=== PATIENT | female | born 1955 | race Caucasian/White ===

== ENCOUNTER 2018-10-14 09:55 | Inpatient (IN) | payer MEDICARE ==
[~2018-10-14] VITALS: Ht 156.2 cm; Wt 56.7 kg
[~2018-10-14 09:55] MED LIST: AMLO5TAB4 PO; AZIT250T PO; CIPR500T94 PO; Ipratropium/Albuterol Sulfate NEB; LOSA100T2 PO; MONT10TA80 PO; PRED5TAB PO; Potassium Chloride PO
[2018-10-14] MEDS ORDERED: IV NORMAL SALINE 1,000ML 1,000 ML IV ONE (10:15)
[2018-10-14] MEDS ORDERED: methylPREDNISolone SOD SUCC PF 125 MG/2 ML VIAL. IV ONE (10:15)
[2018-10-14] MEDS ORDERED: IPRATRPIUM/ALBUTEROL 0.5/2.5MG 3 ML NEBU. NEB ONE (10:15)
[2018-10-14 10:25] LABS: BASO # 0.1 x10^3/uL (0.0-0.2); BASO % 1 % (0-3); EOS % 0 % (0-3); HEMATOCRIT 44.3 % (36.0-47.0); HEMOGLOBIN 14.8 g/dL (12.0-15.5); LYMPH # 1.1 x10^3/uL (1.0-4.8); LYMPH % 14 % (24-48); MEAN CORPUSCULAR HEMOGLOBIN 29 pg (25-35); MEAN CORPUSCULAR HGB CONC 33 g/dL (31-37); MEAN CORPUSCULAR VOLUME 87 fL (79-100); MONO # 0.5 x10^3/uL (0.0-1.1); MONO % 6 % (0-9); NEUT # 6.7 x10^3uL (1.8-7.7); NEUT % 80 % (31-73); PLATELET COUNT 216 x10^3/uL (140-400); RED BLOOD COUNT 5.09 x10^6/uL (3.50-5.40); RED CELL DISTRIBUTION WIDTH 14.8 % (11.5-14.5); WHITE BLOOD COUNT 8.4 x10^3/uL (4.0-11.0)
[2018-10-14] MEDS ORDERED: IV NORMAL SALINE 50ML 50 ML ONE (10:28)
[2018-10-14] MEDS ORDERED: cefTRIAXone SODIUM 1 GM VIAL ONE (10:29)
--- NOTE | 2018-10-14 10:33 | RAD ---
EXAM: CHEST 1 VIEW History: Cough COMPARISON: 03/27/2016 TECHNIQUE: Single portable radiograph of the chest FINDINGS: The cardiac silhouette is unremarkable. The lungs are clear bilaterally. Mild bibasilar lung airspace opacities. IMPRESSION: Mild bibasilar lung airspace opacities likely atelectasis or infiltrates. Electronically signed by: Jameel Delacruz MD (10/14/2018 10:30 AM) [id number]
[2018-10-14 10:49] LABS: CALCIUM 9.5 mg/dL (8.5-10.1); CREATININE 0.9 mg/dL (0.6-1.0); GFR 63.7; POTASSIUM 3.6 mmol/L (3.5-5.1); TOTAL BILIRUBIN 0.5 mg/dL (0.2-1.0); TOTAL PROTEIN 8.2 g/dL (6.4-8.2)
--- NOTE | 2018-10-14 10:51 | PHYS DOC ---
Past History Past Medical History: Cancer, COPD, Hypertension Past Surgical History: Cancer Surgery Alcohol Use: None Drug Use: None Adult General Chief Complaint Chief Complaint: SHORTNESS OF BREATH HPI HPI Patient is a 63-year-old smoker presents with several-day history of progressive cough congestion and shortness of breath. She states she saw her primary care physician this morning and he told her her oxygen level was very low and she needed to come to the emergency department for further evaluation. Patient states in the past she has had a multi lobar pneumonia. She states this feels very similar to that. She denies any hemoptysis.[] Review of Systems Review of Systems Constitutional: Reports fever[] Eyes: Denies change in visual acuity, redness, or eye pain [] HENT: Denies nasal congestion or sore throat [] Respiratory: Per history of present illness[] Cardiovascular: No additional information not addressed in HPI [] GI: Denies abdominal pain, nausea, vomiting, bloody stools or diarrhea [] : Denies dysuria or hematuria [] Musculoskeletal: Denies back pain or joint pain [] Integument: Denies rash or skin lesions [] Neurologic: Denies headache, focal weakness or sensory changes [] Endocrine: Denies polyuria or polydipsia [] All other systems were reviewed and found to be within normal limits, except as documented in this note. Current Medications Current Medications Current Medications Medications (Trade) Dose Ordered Sig/Can Start Time Stop Time Status Last Admin Dose Admin Albuterol/ Ipratropium (Duoneb) 6 ml 1X ONCE 10/14/18 10:15 10/14/18 10:17 DC Ceftriaxone Sodium 1 gm/ Sodium Chloride 50 ml @ 100 mls/hr 1X ONCE 10/14/18 10:15 10/14/18 10:44 DC 10/14/18 10:35 100 MLS/HR Ceftriaxone Sodium (Rocephin) 1 gm STK-MED ONCE 10/14/18 10:29 10/14/18 10:30 DC Methylprednisolone Sodium Succinate (SOLU-Medrol 125MG VIAL) 125 mg 1X ONCE 10/14/18 10:15 10/14/18 10:17 DC 10/14/18 10:35 125 MG Sodium Chloride 50 ml @ As Directed STK-MED ONCE 10/14/18 10:28 10/14/18 10:29 DC Allergies Allergies Allergies Coded Allergies Type Severity Reaction Last Updated Verified morphine Allergy Intermediate Nausea and Vomiting 01/22/15 Yes Physical Exam Physical Exam Constitutional: Well developed, well nourished, moderate respiratory distress, appears acutely ill. [] HENT: Normocephalic, atraumatic, bilateral external ears normal, oropharynx moist, no oral exudates, nose normal. [] Eyes: PERRLA, EOMI, conjunctiva normal, no discharge. [] Neck: Normal range of motion, no tenderness, supple, no stridor. [] Cardiovascular:Heart rate regular rhythm, no murmur [] Lungs & Thorax: Scattered wheezes throughout both lungs no rales[] Abdomen: Bowel sounds normal, soft, no tenderness, no masses, no pulsatile masses. [] Skin: Warm, dry, no erythema, no rash. [] Back: No tenderness, no CVA tenderness. [] Extremities: No tenderness, no cyanosis, no clubbing, ROM intact, no edema. [] Neurologic: Alert and oriented X 3, normal motor function, normal sensory function, no focal deficits noted. [] Psychologic: Anxious[] Current Patient Data Vital Signs Vital Signs Date Time Temp Pulse Resp B/P (MAP) Pulse Ox O2 Delivery O2 Flow Rate FiO2 10/14/18 10:09 98.4 95 18 87 Nasal Cannula 3.0 Lab Results Laboratory Tests Test 10/14/18 10:04 White Blood Count 8.4 x10^3/uL (4.0-11.0) Red Blood Count 5.09 x10^6/uL (3.50-5.40) Hemoglobin 14.8 g/dL (12.0-15.5) Hematocrit 44.3 % (36.0-47.0) Mean Corpuscular Volume 87 fL (79-100) Mean Corpuscular Hemoglobin 29 pg (25-35) Mean Corpuscular Hemoglobin Concent 33 g/dL (31-37) Red Cell Distribution Width 14.8 % (11.5-14.5) H Platelet Count 216 x10^3/uL (140-400) Neutrophils (%) (Auto) 80 % (31-73) H Lymphocytes (%) (Auto) 14 % (24-48) L Monocytes (%) (Auto) 6 % (0-9) Eosinophils (%) (Auto) 0 % (0-3) Basophils (%) (Auto) 1 % (0-3) Neutrophils # (Auto) 6.7 x10^3uL (1.8-7.7) Lymphocytes # (Auto) 1.1 x10^3/uL (1.0-4.8) Monocytes # (Auto) 0.5 x10^3/uL (0.0-1.1) Eosinophils # (Auto) 0.0 x10^3/uL (0.0-0.7) Basophils # (Auto) 0.1 x10^3/uL (0.0-0.2) Lactic Acid Level 1.5 mmol/L (0.4-2.0) Troponin I Quantitative < 0.017 ng/mL (0-0.055) EKG EKG EKG: Normal sinus rhythm rate of [address]-T changes[] Radiology/Procedures Radiology/Procedures [] Impressions: ROCEDURE: CHEST AP ONLY EXAM: CHEST 1 VIEW History: Cough COMPARISON: 03/27/2016 TECHNIQUE: Single portable radiograph of the chest FINDINGS: The cardiac silhouette is unremarkable. The lungs are clear bilaterally. Mild bibasilar lung airspace opacities. IMPRESSION: Mild bibasilar lung airspace opacities likely atelectasis or infiltrates. Course & Med Decision Making Course & Med Decision Making Pertinent Labs and Imaging studies reviewed. (See chart for details) [ED course: Evaluation reveals a 63-year-old female with wheezes. She was given [id number] DuoNeb's and 125 of Solu-Medrol IV with some improvement in her breathing however when she ambulated to the department her oxygen saturation went back into the low 80s. I spoke with her primary care physician who is agreed to admit her to the hospital for further treatment and evaluation] Dragon Disclaimer Dragon Disclaimer This electronic medical record was generated, in whole or in part, using a voice recognition dictation system. Departure Departure: Impression: Primary Impression: COPD with exacerbation Disposition: ADMITTED INPATIENT Admitting Physician: Donis Cedillo Condition: STABLE Referrals: DONIS CEDILLO MD (PCP) JAMIA GROSS DO Oct 14, 2018 10:51
[2018-10-14] MEDS: IV NORMAL SALINE 1,000ML 1,000 ML IV SCH ×2 (10:53→18:53)
[2018-10-14] MEDS ORDERED: ACETAMINOPHEN 325 MG TABLET PO PRN (11:00)
[2018-10-14] MEDS ORDERED: ONDANSETRON PF 4 MG/2 ML VIAL. IV PRN (11:00)
[2018-10-14 13:31] VITALS: BP 131/59
--- NOTE | 2018-10-14 13:52 | NUR ---
Pt Cory Nidia admitted to ICU 5 tele status for COPD exac and PNA. Pt reports never being told she has COPD in past. Pt denies pain, is currently requiring 4L NC for sats to be 92%. Continuing with IV abx, breathing treatments and solumedrol. PT is alert and oriented x4. However, pt refusing it to be at 4L , states it hurts her nose so O2 is at 3L, pt sats 89-90%. Pt reports she was going to leave ED because she was mad that the ED doctor told her she had COPD. Is hoping to leave tomorrow, RN informed patient that she should expect to stay a couple of days as her oxygen status is not doing well and patient does not want to go home on oxygen. Pt states she will stay now that she knows she has some pneumonia. DARWIN.
[2018-10-14] MEDS: IPRATRPIUM/ALBUTEROL 0.5/2.5MG 3 ML NEBU. NEB SCH ×3 (14:55→20:13)
[2018-10-14] MEDS: methylPREDNISolone SOD SUCC PF 40 MG/ML VIAL. IV SCH ×2 (14:55→21:02)
[2018-10-14] MEDS: HEPARIN for SUB-Q USE 5,000 UNIT/ML VIAL. SQ SCH ×2 (14:58→19:27)
--- NOTE | 2018-10-14 15:16 | NUR ---
Pt is refusing heparin SQ, states she does not want poked with a needle and would rather get up and walk. Pt given a portable O2 tank and went for walk to [facility]. DARWIN.
[2018-10-14 15:27] VITALS: BP 149/64
--- NOTE | 2018-10-14 17:19 | EKG ---
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
[2018-10-14 19:16] VITALS: BP 131/68
[2018-10-14] MEDS: LACTOBACILLUS RHAMNOSUS GG 1 CAPSULE. PO SCH (19:48)
[2018-10-14] MEDS: amLODIPine BESYLATE 5 MG TABLET PO SCH (19:49)
[2018-10-14 23:03] VITALS: BP 132/64
[2018-10-15] MEDS: IV NORMAL SALINE 1,000ML 1,000 ML IV SCH (01:49)
[2018-10-15] MEDS: HEPARIN for SUB-Q USE 5,000 UNIT/ML VIAL. SQ SCH ×3 (05:05→21:49)
[2018-10-15 05:10] VITALS: BP 136/67
[2018-10-15] MEDS: methylPREDNISolone SOD SUCC PF 40 MG/ML VIAL. IV SCH ×3 (05:12→21:49)
[2018-10-15] MEDS: IPRATRPIUM/ALBUTEROL 0.5/2.5MG 3 ML NEBU. NEB SCH ×3 (05:35→20:39)
[2018-10-15 06:58] LABS: BASO % 0 % (0-3); EOS % 0 % (0-3); HEMOGLOBIN 12.6 g/dL (12.0-15.5); LYMPH # 0.6 x10^3/uL (1.0-4.8); LYMPH % 7 % (24-48); MEAN CORPUSCULAR HEMOGLOBIN 29 pg (25-35); MEAN CORPUSCULAR HGB CONC 33 g/dL (31-37); MEAN CORPUSCULAR VOLUME 89 fL (79-100); MONO # 0.1 x10^3/uL (0.0-1.1); MONO % 2 % (0-9); NEUT # 7.9 x10^3uL (1.8-7.7); NEUT % 91 % (31-73); PLATELET COUNT 179 x10^3/uL (140-400); RED BLOOD COUNT 4.29 x10^6/uL (3.50-5.40); RED CELL DISTRIBUTION WIDTH 14.9 % (11.5-14.5); WHITE BLOOD COUNT 8.7 x10^3/uL (4.0-11.0)
[2018-10-15] MEDS: amLODIPine BESYLATE 5 MG TABLET PO SCH ×3 (08:14→20:57)
[2018-10-15] MEDS: LACTOBACILLUS RHAMNOSUS GG 1 CAPSULE. PO SCH ×2 (08:14→20:57)
[2018-10-15] MEDS: NICOTINE 21MG PATCH. TD SCH ×2 (08:16→08:36)
--- NOTE | 2018-10-15 09:43 | NUR ---
NURSING NOTE PT REFUSED BP MED NORVASC THIS AM STATES SHE ONLY TAKES IT ONCE DAILY AND GOT IT LATE LAST NIGHT AND DOES NOT WANT IT RIGHT KNOW. JULY SINGER.
--- NOTE | 2018-10-15 09:45 | NUR ---
NURSING NOTE FLUIDS PER DR SOLIMAN, NO ADDITIONAL FLUIDS NEEDED AT THIS TIME. BP STABLE. ENMANUEL MCDOWELL
--- NOTE | 2018-10-15 10:41 | PN ---
DATE: SUBJECTIVE: The patient admitted yesterday for increased shortness of breath, exacerbation of asthma, pneumonia and possible sepsis. The patient is doing better this morning. She was given IV fluids, double antibiotics, sepsis protocol and pathway on heparin injections. OBJECTIVE: VITAL SIGNS: The patient's blood pressure this morning is stable at 136/67, respiratory rate 16, pulse 78, afebrile. GENERAL: The patient is alert and oriented x 3. LUNGS: Diminished, but clear. There are some decreased breath sounds in the right upper lobe and left lower lobe. CARDIOVASCULAR: Regular sinus rhythm and bradycardic. ABDOMEN: Soft, nontender. EXTREMITIES: No clubbing, cyanosis, nor edema. NEUROLOGIC: The patient is alert and oriented, says she is feeling better. The patient's x-rays were basically showing possibility of atelectasis versus infiltrate. PLAN: We will go ahead and review this with possible CAT scan and get a D-dimer and make further evaluation and her labs are basically not particularly abnormal in that regard consistent with her bad infection, but we will continue to monitor her accordingly. IMPRESSION: Pneumonia of unspecified etiology, sepsis, acute exacerbation of chronic obstructive pulmonary disease secondary to respiratory infection, hypoxia, acute respiratory distress. DONNA SOLIMAN MD DR: TYLER/paul JOB#: [id number] / [id number]
[2018-10-15 11:11] VITALS: BP 142/86
[2018-10-15 15:30] VITALS: BP 141/39
[2018-10-15 19:20] VITALS: BP 149/77
[2018-10-15 22:40] VITALS: BP 144/67
[2018-10-16] MEDS: IPRATRPIUM/ALBUTEROL 0.5/2.5MG 3 ML NEBU. NEB SCH (05:01)
[2018-10-16 05:40] VITALS: BP 152/69
[2018-10-16] MEDS: methylPREDNISolone SOD SUCC PF 40 MG/ML VIAL. IV SCH (05:42)
[2018-10-16] MEDS: HEPARIN for SUB-Q USE 5,000 UNIT/ML VIAL. SQ SCH (05:43)
[2018-10-16] MEDS: LACTOBACILLUS RHAMNOSUS GG 1 CAPSULE. PO SCH (08:46)
[2018-10-16 08:47] VITALS: BP 152/69
[2018-10-16] MEDS: amLODIPine BESYLATE 5 MG TABLET PO SCH (08:47)
[2018-10-16] MEDS: NICOTINE 21MG PATCH. TD SCH (08:50)
[2018-10-16] MEDS ORDERED: amLODIPine BESYLATE 5 MG TABLET PO SCH (09:00)
[2018-10-16] MEDS ORDERED: IPRA3AMP29 NEB (10:31)
[2018-10-16] MEDS ORDERED: LEVO500T59 PO (10:31)
[2018-10-16] MEDS ORDERED: AMLO5TAB4 PO (10:31)
[2018-10-16] MEDS ORDERED: Nicotine 21MG TD (10:31)
--- NOTE | 2018-10-16 11:01 | NUR ---
pt discharged, verbalized understanding with paperwork, iv d/c'd, pt off the unit accompanied by .
--- NOTE | 2018-10-16 17:04 | DS ---
DATE OF DISCHARGE: 10/16/2018 HOSPITAL COURSE: A 63-year-old female came to the hospital extremely short of breath, acute respiratory failure, came over to the Emergency Room where she was admitted in acute respiratory distress. The patient also had pneumonia. The patient was receiving IV antibiotic therapy. She did have possible sepsis and continued to receive IV antibiotic therapy; however, the patient demanded to be discharged home, but thought she could stay at least another day or two on IV antibiotics, but she refused and was discharged home on oral antibiotics as well as a followup here in the next couple of days as well as close monitoring. Phone number given to her and told her to stay. No smoking and to continue to wear a mask if [place] and [place]. In any case, the patient was discharged home per her request. IMPRESSION: Acute respiratory distress; sepsis; pneumonia of unspecified etiology; emphysema, centrilobular; hypertension, essential. Nicotine habituation. She will be on a heart healthy diet, decreased activity and encouraged numerous times to stop smoking and also numerous times to remain in the hospital for another day or two. She said she felt good enough to go home and demanded to be discharged. We will continue to monitor blood pressure as well as her other needs as indicated above. DONNA SOLIMAN MD DR: TYLER/paul JOB#: [id number] / [id number]
[2018-10-16] MEDS ORDERED: levoFLOXacin 750 MG TABLET PO SCH (20:00)
== END 2018-10-16 11:02 | disposition home or self-care (01) | DRG 871 ==
LOC: ER 09:55 → ICU 11:20
PROVIDERS: ADMIT Family Medicine; ATTEND Family Medicine
DX: A41.9 Sepsis, unspecified organism (principal); J18.9 Pneumonia, unspecified organism; J96.01 Acute respiratory failure with hypoxia; J45.901 Unspecified asthma with (acute) exacerbation; F17.210 Nicotine dependence, cigarettes, uncomplicated; J43.9 Emphysema, unspecified; I10 Essential (primary) hypertension; F17.200 Nicotine dependence, unspecified, uncomplicated; Z88.5 Allergy status to narcotic agent; Z90.710 Acquired absence of both cervix and uterus; Z90.5 Acquired absence of kidney
CPT/HCPCS: 36415; 71045; 80053; 83605; 83880; 84145; 84484; 85025; 85379; 87040; 87070; 87205; 87641; 93005; 94640; 94760; 96374; 96375; J0696; J1644; J1956; J2920; J2930; J7620; 99285-25; J7030

== ENCOUNTER 2020-09-05 08:35 | Inpatient (IN) | payer MEDICARE ==
[~2020-09-05] VITALS: Ht 156.2 cm; Wt 55.3 kg
[2020-09-05] VITALS (10 sets, daily range): BP systolic 101–130; BP diastolic 47–71
[~2020-09-05 08:35] MED LIST changes: +IPRA3AMP29 NEB; +LEVO500T59 PO; +Nicotine 21MG TD
[2020-09-05] MEDS ORDERED: IPRATRPIUM/ALBUTEROL 0.5/2.5MG 3 ML NEBU. ONE (09:11)
--- NOTE | 2020-09-05 09:14 | PHYS DOC ---
Past History Past Medical History: Cancer, COPD, Hypertension Additional Past Medical Histor: R arm disability Past Surgical History: Cancer Surgery, Hysterectomy Additional Past Surgical Histo: R nephrectomy Alcohol Use: None Drug Use: None Adult General Chief Complaint Chief Complaint: SHORTNESS OF BREATH [facility] HPI Patient is a 65-year-old female presenting for shortness of breath. She was seen at primary care's office this morning for same complaint. Reports 72 hours ago feeling more short of breath than usual without any known trauma, inciting event or exposure. Nothing known makes better, patient admits to being a heavy smoker and states this is made worse. Patient denies any pain just generalized feelings of air hunger with increased wheeze, sputum production and change in sputum purulence. No fever, she is up-to-date on all vaccinations including x2 COVID-19 vaccinations. Presented to primary care's office as stated and was found to be hypoxic on room air with chest x-ray concerning for potential pulmonary opacity concerning for pneumonia and so, patient was advised to present to our ER for work-up and likely admission Review of Systems Review of Systems Fourteen body systems of review of systems have been reviewed. See HPI for pertinent positives and negative responses, other ramirez all other systems are negative, non-pertinent or non-contributory Allergies Allergies Allergies Coded Allergies Type Severity Reaction Last Updated Verified morphine Allergy Intermediate Nausea and Vomiting 01/22/15 Yes Physical Exam Physical Exam Constitutional: Well developed, well nourished, no acute distress, non-toxic appearance. HENT: Normocephalic, atraumatic, bilateral external ears normal, oropharynx moist, no oral exudates, nose normal. Eyes: PERRLA, EOMI, conjunctiva normal, no discharge. Neck: Normal range of motion, no tenderness, supple, no stridor. Cardiovascular: Heart rate regular, sinus rhythm, no murmurs rubs or gallops Lungs & Thorax: Bilateral breath sounds clear to auscultation Abdomen: Bowel sounds normal, soft, no tenderness, no masses, no pulsatile masses. Nonsurgical abdomen, no peritoneal signs Skin: Warm, dry, no erythema, no rash. Back: No tenderness, no CVA tenderness. Extremities: No tenderness, no cyanosis, no clubbing, ROM intact, no edema. Neurologic: Alert and oriented X 3, grossly normal motor & sensory function, no focal deficits noted. Psychologic: Affect normal, judgement normal, mood normal. Current Patient Data Vital Signs Vital Signs Date Time Temp Pulse Resp B/P (MAP) Pulse Ox O2 Delivery O2 Flow Rate FiO2 09/05/20 08:52 98.2 91 20 146/104 (118) 72 Room Air Lab Results Laboratory Tests Test 09/05/20 09:03 White Blood Count 7.2 x10^3/uL Red Blood Count 5.03 x10^6/uL Hemoglobin 15.2 g/dL Hematocrit 43.9 % Mean Corpuscular Volume 87 fL Mean Corpuscular Hemoglobin 30 pg Mean Corpuscular Hemoglobin Concent 35 g/dL Red Cell Distribution Width 13.8 % Platelet Count 160 x10^3/uL Neutrophils (%) (Auto) 81 % Lymphocytes (%) (Auto) 12 % Monocytes (%) (Auto) 7 % Eosinophils (%) (Auto) 0 % Basophils (%) (Auto) 1 % Neutrophils # (Auto) 5.9 x10^3uL Lymphocytes # (Auto) 0.8 x10^3/uL Monocytes # (Auto) 0.5 x10^3/uL Eosinophils # (Auto) 0.0 x10^3/uL Basophils # (Auto) 0.0 x10^3/uL Bedside Venous pH 7.34 Bedside Venous pCO2 50 mmHg Bedside Venous pO2 27 mmHg Venous Blood HCO3 27 mmol/L POC Venous O2 Saturation (Antonio) 45 % Bedside FiO2 36 Sodium Level 129 mmol/L Potassium Level 4.2 mmol/L Chloride Level 92 mmol/L Carbon Dioxide Level 28 mmol/L Anion Gap 9 Blood Urea Nitrogen 14 mg/dL Creatinine 0.9 mg/dL Estimated GFR (Cockcroft-Gault) 63.2 BUN/Creatinine Ratio 16 Glucose Level 100 mg/dL Lactic Acid Level 1.7 mmol/L Calcium Level 9.2 mg/dL Total Bilirubin 1.1 mg/dL Aspartate Amino Transf (AST/SGOT) 19 U/L Alanine Aminotransferase (ALT/SGPT) 21 U/L Alkaline Phosphatase 99 U/L Troponin I Quantitative < 0.017 ng/mL Total Protein 7.6 g/dL Albumin 4.2 g/dL Albumin/Globulin Ratio 1.2 Current Medications Medications (Trade) Dose Ordered Sig/Can Route PRN Reason Start Time Stop Time Status Last Admin Dose Admin Albuterol/ Ipratropium (Duoneb) 3 ml 1X ONCE NEB 09/05/20 09:15 09/05/20 09:26 DC 09/05/20 09:18 Ceftriaxone Sodium 1 gm/ Sodium Chloride 50 ml @ 100 mls/hr 1X ONCE IV 09/05/20 09:15 09/05/20 09:44 DC 09/05/20 09:40 Azithromycin 500 mg/Sodium Chloride 250 ml @ 250 mls/hr 1X ONCE IV 09/05/20 09:15 09/05/20 10:14 DC Albuterol/ Ipratropium (Duoneb) 3 ml STK-MED ONCE .ROUTE 09/05/20 09:11 09/05/20 09:11 DC Aspirin (Marissa Aspirin) 325 mg 1X ONCE PO 09/05/20 09:30 09/05/20 09:31 DC 09/05/20 09:39 Sodium Chloride 250 ml @ As Directed STK-MED ONCE .ROUTE 09/05/20 09:31 09/05/20 09:31 DC Sodium Chloride 50 ml @ As Directed STK-MED ONCE .ROUTE 09/05/20 09:31 09/05/20 09:31 DC Azithromycin (Zithromax) 500 mg STK-MED ONCE IV 09/05/20 09:31 09/05/20 09:31 DC Ceftriaxone Sodium (Rocephin) 1 gm STK-MED ONCE .ROUTE 09/05/20 09:31 09/05/20 09:31 DC Iohexol (Omnipaque 350 Mg/ml) 100 ml 1X ONCE IV 09/05/20 09:45 09/05/20 09:46 DC 09/05/20 10:02 EKG EKG EKG ordered and interpreted by myself 0901 hrs. as sinus rhythm at 80 bpm, no axis deviation, unremarkable intervals, no acute ischemic findings, no STEMI Radiology/Procedures Radiology/Procedures XR CHEST 1V CLINICAL INDICATIONS: Reason: SHORTNESS OF BREATH COMPARISON: October 14, 2018. Findings: Previously seen bibasilar lung infiltrates have cleared. No acute lung infiltrate or pleural effusion or pulmonary edema or lung mass or pneumothorax is seen. The heart size, pulmonary vasculature, mediastinum and both jaja are unremarkable. IMPRESSION: No acute radiographic abnormality is seen. Electronically signed by: Emmett Alvares MD (09/05/2020 9:22 AM) [id number] ////////////// Examination: CT angiography chest with IV contrast HISTORY: History of shortness of breath COMPARISON: 01/21/2015 Technique: Axial CT angiographic images of chest were performed with IV contrast. Coronal and sagittal 3-D MIP reformats are performed Exposure: One or more of the following individualized dose reduction techniques were utilized for this examination: 1. Automated exposure control 2. Adjustment of the mA and/or kV according to patient size 3. Use of iterative reconstruction technique FINDINGS: The visualized thyroid gland grossly appears unremarkable. The caliber of the aorta grossly appears unremarkable. Moderate aortic atherosclerosis. There is no evidence of filling defect identified in main pulmonary arterial trunk and right and left main pulmonary arteries and the visualized lobar, segmental pulmonary arteries. There are multiple tree-in-bud airspace opacities identified in the bilateral lungs diffusely particularly in the bibasilar lungs. There is focal airspace opacity identified in the right upper lobe of the lung likely atelectasis or infiltrates. The liver, spleen, adrenals grossly appears unremarkable Moderate degenerative changes thoracic spine. IMPRESSION: 1. No evidence of pulmonary embolism. 2. Multiple tree-in-bud airspace opacities identified in the bilateral lungs diffusely particularly in the bibasilar lungs likely inflammatory or infectious etiology. Focal airspace opacity right upper lobe of the lung likely atelectasis or infiltrate. Electronically signed by: Jameel Delacruz MD (09/05/2020 10:29 AM) [id number] Heart Score C/O Chest Pain: No HEART Score for Chest Pain: HEART Score for Chest Pain Response (Comments) Value History Slighlty/Non-Suspicious 0 ECG Nonspecific Repolarizatio 1 Age >45 - < 65 1 Risk Factors 1 or 2 Risk Factors 1 Troponin < Normal Limit 0 Total 3 Risk Factors: Risk Factors: DM, Current or recent (<one month) smoker, HTN, HLP, family history of CAD, obesity. Risk Scores: Risk Factors: DM, Current or recent (<one month) smoker, HTN, HLP, family history of CAD, obesity. Course & Med Decision Making Course & Med Decision Making Airway patent, breathing labored, IV and vitals obtained concerning for tachypnea and room air hypoxia 72%. Supplemental oxygen via nasal cannula and x1 DuoNeb treatment improved patient's oxygenation HPI, physical exam and ER work-up concerning for pneumonia. IV antibiotics started with blood and sputum cultures pending. CT angio ruled out potential pulmonary embolism I contacted patient's primary care physician who will also serve as hospitalist and reviewed case, he was agreeable for need to admit and accepted patient under his care Updated patient on proposed plan of care that included hospital admission for continued inpatient medical management and she was amenable. All questions and concerns addressed prior to admission Critical Care Time This patient required critical care. Due to the fact that the patient required a significant amount of one on one physician - patient contact time, ordering and review of studies, arranging urgent treatment with development of a management plan, evaluation of patients response to treatment with frequent reassessments, and discussions with other providers this patient required 45 minutes of critical care time. Critical care time was indicated due to the inherent instability and/or potential for instability in this patient. The critical care time that is allocated to this patient is above and beyond any time spent on any other billable procedures performed on this patient. Dragon Disclaimer Dragon Disclaimer This electronic medical record was generated, in whole or in part, using a voice recognition dictation system. Departure Departure: Impression: Primary Impression: Acute respiratory failure with hypoxia Additional Impression: Sepsis due to pneumonia Disposition: ADMITTED INPATIENT Admitting Physician: Donis Soliman Condition: STABLE Referrals: DONIS SOLIMAN MD (PCP) Problem Qualifiers BONI NIXON DO Sep 05, 2020 09:14
[2020-09-05] MEDS ORDERED: IPRATRPIUM/ALBUTEROL 0.5/2.5MG 3 ML NEBU. NEB ONE (09:15)
[2020-09-05] MEDS ORDERED: AZITHROMYCIN 500 MG in IV NORMAL SALINE 250ML 250 ML IV ONE (09:15)
[2020-09-05 09:21] LABS: BASO % 1 % (0-3); EOS % 0 % (0-3); HEMATOCRIT 43.9 % (36.0-47.0); HEMOGLOBIN 15.2 g/dL (12.0-15.5); LYMPH # 0.8 x10^3/uL (1.0-4.8); LYMPH % 12 % (24-48); MEAN CORPUSCULAR HEMOGLOBIN 30 pg (25-35); MEAN CORPUSCULAR HGB CONC 35 g/dL (31-37); MEAN CORPUSCULAR VOLUME 87 fL (79-100); MONO # 0.5 x10^3/uL (0.0-1.1); MONO % 7 % (0-9); NEUT # 5.9 x10^3uL (1.8-7.7); NEUT % 81 % (31-73); PLATELET COUNT 160 x10^3/uL (140-400); RED BLOOD COUNT 5.03 x10^6/uL (3.50-5.40); RED CELL DISTRIBUTION WIDTH 13.8 % (11.5-14.5); WHITE BLOOD COUNT 7.2 x10^3/uL (4.0-11.0)
--- NOTE | 2020-09-05 09:25 | RAD ---
XR CHEST 1V CLINICAL INDICATIONS: Reason: SHORTNESS OF BREATH COMPARISON: October 14, 2018. Findings: Previously seen bibasilar lung infiltrates have cleared. No acute lung infiltrate or pleura l effusion or pulmonary edema or lung mass or pneumothorax is seen. The heart size, pulmonary vascul ature, mediastinum and both jaja are unremarkable. IMPRESSION: No acute radiographic abnormality is seen. Electronically signed by: Emmett Alvares MD (09/05/2020 9:22 AM) [id number]
[2020-09-05] MEDS ORDERED: ASPIRIN 325 MG TABLET PO ONE (09:30)
[2020-09-05] MEDS ORDERED: cefTRIAXone SODIUM 1 GM VIAL ONE (09:31)
[2020-09-05] MEDS ORDERED: IV NORMAL SALINE 50ML 50 ML ONE (09:31)
[2020-09-05] MEDS ORDERED: AZITHROMYCIN 500 MG VIAL. IV ONE (09:31)
[2020-09-05] MEDS ORDERED: IV NORMAL SALINE 250ML 250 ML ONE (09:31)
[2020-09-05 09:38] LABS: ALBUMIN 4.2 g/dL (3.4-5.0); ALBUMIN/GLOBULIN RATIO 1.2 (1.0-1.7); CALCIUM 9.2 mg/dL (8.5-10.1); CREATININE 0.9 mg/dL (0.6-1.0); GFR 63.2; POTASSIUM 4.2 mmol/L (3.5-5.1); TOTAL BILIRUBIN 1.1 mg/dL (0.2-1.0); TOTAL PROTEIN 7.6 g/dL (6.4-8.2)
[2020-09-05] MEDS ORDERED: IOHEXOL 350 MG/ML 100 ML VIAL. IV ONE (09:45)
--- NOTE | 2020-09-05 10:31 | RAD ---
Examination: CT angiography chest with IV contrast HISTORY: History of shortness of breath COMPARISON: 01/21/2015 Technique: Axial CT angiographic images of chest were performed with IV contrast. Coronal and sagitta l 3-D MIP reformats are performed Exposure: One or more of the following individualized dose reduction techniques were utilized for thi s examination: 1. Automated exposure control 2. Adjustment of the mA and/or kV according to patient size 3. Use of iterative reconstruction technique FINDINGS: The visualized thyroid gland grossly appears unremarkable. The caliber of the aorta grossly appears u nremarkable. Moderate aortic atherosclerosis. There is no evidence of filling defect identified in ma in pulmonary arterial trunk and right and left main pulmonary arteries and the visualized lobar, segm ental pulmonary arteries. There are multiple tree-in-bud airspace opacities identified in the bilater al lungs diffusely particularly in the bibasilar lungs. There is focal airspace opacity identified in the right upper lobe of the lung likely atelectasis or infiltrates. The liver, spleen, adrenals alyse sly appears unremarkable Moderate degenerative changes thoracic spine. IMPRESSION: 1. No evidence of pulmonary embolism. 2. Multiple tree-in-bud airspace opacities identified in the bilateral lungs diffusely particularly i n the bibasilar lungs likely inflammatory or infectious etiology. Focal airspace opacity right upper lobe of the lung likely atelectasis or infiltrate. Electronically signed by: Jameel Delacruz MD (09/05/2020 10:29 AM) [id number]
[2020-09-05] MEDS ORDERED: ACETAMINOPHEN 325 MG TABLET PO PRN (10:45)
[2020-09-05] MEDS ORDERED: NITROGLYCERIN SUBLINGUAL 0.4 MG BOTTLE OF 25. SL PRN (10:45)
[2020-09-05] MEDS: IPRATRPIUM/ALBUTEROL 0.5/2.5MG 3 ML NEBU. NEB SCH ×3 (11:31→20:12)
[2020-09-05] MEDS ORDERED: FLUT16SP21 NS (11:45)
[2020-09-05] MEDS ORDERED: AMLO-187 PO (11:45)
[2020-09-05] MEDS ORDERED: FLUTICASONE 50MCG/NASAL SPRAY 16GM BOTTLE. NS PRN (17:30)
[2020-09-05] MEDS ORDERED: AZITHROMYCIN 250 MG TABLET. PO ONE (17:30)
[2020-09-05] MEDS ORDERED: ZOLPIDEM 5 MG TABLET. PO PRN (17:30)
[2020-09-05] MEDS: methylPREDNISolone SOD SUCC PF 40 MG/ML VIAL. IV SCH ×2 (17:40→20:22)
[2020-09-05] MEDS ORDERED: IPRATRPIUM/ALBUTEROL 0.5/2.5MG 3 ML NEBU. NEB SCH (20:00)
[2020-09-06] VITALS (24 sets, daily range): BP systolic 106–149; BP diastolic 55–97
[2020-09-06] MEDS: IPRATRPIUM/ALBUTEROL 0.5/2.5MG 3 ML NEBU. NEB SCH ×4 (05:25→21:41)
[2020-09-06 06:22] LABS: BASO % 0 % (0-3); EOS % 0 % (0-3); HEMATOCRIT 41.1 % (36.0-47.0); HEMOGLOBIN 13.9 g/dL (12.0-15.5); LYMPH # 0.4 x10^3/uL (1.0-4.8); LYMPH % 10 % (24-48); MEAN CORPUSCULAR HEMOGLOBIN 30 pg (25-35); MEAN CORPUSCULAR HGB CONC 34 g/dL (31-37); MEAN CORPUSCULAR VOLUME 88 fL (79-100); MONO % 1 % (0-9); NEUT # 3.5 x10^3uL (1.8-7.7); NEUT % 89 % (31-73); PLATELET COUNT 154 x10^3/uL (140-400); RED BLOOD COUNT 4.67 x10^6/uL (3.50-5.40); RED CELL DISTRIBUTION WIDTH 13.9 % (11.5-14.5); WHITE BLOOD COUNT 3.9 x10^3/uL (4.0-11.0)
[2020-09-06 06:37] LABS: CALCIUM 9.2 mg/dL (8.5-10.1); CREATININE 0.8 mg/dL (0.6-1.0); GFR 72.4
[2020-09-06] MEDS: methylPREDNISolone SOD SUCC PF 40 MG/ML VIAL. IV SCH ×3 (08:27→21:12)
[2020-09-06] MEDS: AZITHROMYCIN 250 MG TABLET. PO SCH (08:27)
[2020-09-06] MEDS: LACTOBACILLUS RHAMNOSUS GG 1 CAPSULE. PO SCH ×2 (08:27→21:13)
[2020-09-06] MEDS: amLODIPine BESYLATE 10 MG TABLET PO SCH (08:28)
[2020-09-06] MEDS ORDERED: IPRATRPIUM/ALBUTEROL 0.5/2.5MG 3 ML NEBU. NEB SCH (12:00)
[2020-09-06] MEDS ORDERED: methylPREDNISolone SOD SUCC PF 125 MG/2 ML VIAL. IV SCH (14:00)
--- NOTE | 2020-09-06 22:09 | EKG ---
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
[2020-09-07] VITALS (10 sets, daily range): BP systolic 127–155; BP diastolic 58–79
--- NOTE | 2020-09-07 02:53 | PN ---
SUBJECTIVE: The patient admitted with acute respiratory failure. The patient also reports extreme shortness of breath. The patient is doing a little better today. OBJECTIVE: VITAL SIGNS: Blood pressure 129/60, respiratory rate 18, pulse 90, afebrile. GENERAL: The patient is alert and oriented x3. The patient is breathing a little bit easier. LUNGS: Diminished but basically clearer than they have been, but still decreased breath sounds throughout. Still receiving aggressive pulmonary toilet and will continue to monitor her accordingly. She is still in the ICU for this respiratory situation. The patient continued to be monitored. She is on four liters at 92%. Lungs are diminished throughout, poor movement of air is noted. CARDIOVASCULAR: Stable. ABDOMEN: Soft. NEUROLOGIC: The patient is more alert. ASSESSMENT: Respiratory failure, acute exacerbation of chronic obstructive pulmonary disease with acute bronchitis. The patient had her COVID-19 vaccination. PLAN: She will continue with IV antibiotic therapy and aggressive pulmonary toilet. GAETANO DR: Macehlle TID: [id number]
[2020-09-07] MEDS: IPRATRPIUM/ALBUTEROL 0.5/2.5MG 3 ML NEBU. NEB SCH ×4 (05:13→21:50)
[2020-09-07] MEDS: AZITHROMYCIN 250 MG TABLET. PO SCH (07:59)
[2020-09-07] MEDS: methylPREDNISolone SOD SUCC PF 40 MG/ML VIAL. IV SCH ×2 (07:59→21:00)
[2020-09-07] MEDS: amLODIPine BESYLATE 10 MG TABLET PO SCH (08:00)
[2020-09-07] MEDS: LACTOBACILLUS RHAMNOSUS GG 1 CAPSULE. PO SCH ×2 (08:00→21:00)
--- NOTE | 2020-09-07 21:36 | PN ---
SUBJECTIVE: A 65-year-old female in with acute respiratory failure for that matter markedly tight on her lungs and difficulty breathing. The patient given aggressive pulmonary toilet, making fairly good progress overall, says she is breathing much better. She would like to be able to walk around a little bit more and make further assessment. She is on methylprednisolone and decreasing that overall. OBJECTIVE: VITAL SIGNS: Otherwise, blood pressure 140/70, respiratory rate 16, pulse 63, 3 liters nasal cannula has been present. LUNGS: Diminished, but clear. CARDIOVASCULAR: Stable. Speech fluent, spontaneous, talkative. ABDOMEN: Soft. EXTREMITIES: No clubbing, cyanosis or edema. IMPRESSION: Acute exacerbation of chronic obstructive pulmonary disease, acute respiratory failure. PLAN: Continue to monitor the patient accordingly, make further adjustment, taper down on steroids and hopefully ready for discharge here soon transferred to the floor. KIERRA DR: Machelle TID: [id number]
[2020-09-08 05:39] VITALS: BP 150/53
[2020-09-08] MEDS: IPRATRPIUM/ALBUTEROL 0.5/2.5MG 3 ML NEBU. NEB SCH ×4 (05:40→19:28)
[2020-09-08] MEDS: LACTOBACILLUS RHAMNOSUS GG 1 CAPSULE. PO SCH ×2 (09:20→20:19)
[2020-09-08] MEDS: AZITHROMYCIN 250 MG TABLET. PO SCH (09:20)
[2020-09-08] MEDS: amLODIPine BESYLATE 10 MG TABLET PO SCH (09:20)
[2020-09-08] MEDS: methylPREDNISolone SOD SUCC PF 40 MG/ML VIAL. IV SCH ×2 (09:21→20:19)
[2020-09-08 11:28] VITALS: BP 158/74
[2020-09-08 15:47] VITALS: BP 134/66
[2020-09-08 19:20] VITALS: BP 144/67
--- NOTE | 2020-09-08 21:56 | PN ---
SUBJECTIVE: A 65-year-old female in with acute exacerbation of COPD. The patient needs to quit smoking, we discussed that. The patient otherwise is resting fairly comfortably. She still desaturating down into the 80s with minimal exertion. She needs to continue on oxygen. We are trying to get her oxygen today, Wednesday, but not able to, so keep her another day. Keep her on Solu-Medrol and aggressive pulmonary toilet, given instructions on using her nebulizer and the like. Otherwise, very pleasant lady. OBJECTIVE: VITAL SIGNS: Blood pressure is that of 150/70, respiratory rate 20, pulse 83, afebrile, oxygen saturation in the low to mid 80s without oxygen with 1 liter at approximately 92%. IMPRESSION: Acute respiratory failure, acute exacerbation of chronic obstructive pulmonary disease with acute bronchitis as well as chronic emphysema, tobacco abuse. PLAN: As above. RON DR: Machelle TID: [id number]
[2020-09-09 05:34] VITALS: BP 158/79
[2020-09-09] MEDS: IPRATRPIUM/ALBUTEROL 0.5/2.5MG 3 ML NEBU. NEB SCH ×2 (06:43→10:20)
[2020-09-09] MEDS: AZITHROMYCIN 250 MG TABLET. PO SCH (07:39)
[2020-09-09] MEDS: LACTOBACILLUS RHAMNOSUS GG 1 CAPSULE. PO SCH (07:39)
[2020-09-09] MEDS: amLODIPine BESYLATE 10 MG TABLET PO SCH (07:40)
[2020-09-09] MEDS: methylPREDNISolone SOD SUCC PF 40 MG/ML VIAL. IV SCH (07:40)
[2020-09-09 11:02] VITALS: BP 145/74
[2020-09-09] MEDS ORDERED: PRED5TAB PO (11:22)
[2020-09-09] MEDS ORDERED: LACT1CAP19 PO (11:22)
--- NOTE | 2020-09-09 11:24 | DISCH ---
HOME HEALTH DISCHARGE/MEDS DISCHARGE INFORMATION: Discharge Date: Sep 09, 2020 Final Diagnosis: Problems Medical Problems: (1) Acute respiratory failure with hypoxia Status: Acute (2) Sepsis due to pneumonia Status: Acute Condition on Discharge: Stable CODE STATUS: Code Status: Full HOME HEALTH: Face to Face: I certify this patient is under my care and that I, or a nurse practitioner or physician's billing assistant working with me, had a face to face encounter that meets the physician face to face encounter requirements with this patient on September 09, 2020. Medical Condition(s): COPD, HTN, Pneumonia Intermediate For: Assess Cardiopulm Status, Assess & Educate Safety, Assess/Skilled Observatio, Medication Management Homebound Status Met By: Fatigue w/ amb., Limited distance walking POST DISCHARGE ORDERS: Activity Instructions for Disc: Activity as tolerated Weight Bearing Status after Di: No restrictions DIET AFTER DISCHARGE: Cardiac CERTIFICATION STATEMENT: Certification Statement: Based on the above finding, I certify that this patient is confined to the home and needs intermittent senior living care, physical therapy and/or speech therapy, or continues to need occupational therapy.~ This patient is under my care, and I have initiated the establishment of the plan of care.~ This patient will be followed by myself or a community physician who will periodically review the plan of care. DISCHARGE MEDICATIONS: Home Meds Active Scripts Ipratropium/Albuterol Sulfate (DUONEB 0.5-3(2.5) MG/3 ML) 3 Ml Ampul.neb, 3 ML NEB RTQID for copd for 30 Days, #120 EACH 5 Refills Prov:DONNA SOLIMAN MD 10/16/18 Reported Medications Fluticasone Propionate (FLUTICASONE PROPIONATE NASAL SPRAY) 16 Gm [place].susp, 2 SPR NS PRN DAILY PRN for ., #1 INHALER 11 Refills 09/05/20 Amlodipine Besylate (AMLODIPINE BESYLATE) 10 Mg Tablet, 1 TAB PO DAILY for HTN 09/05/20 DONNA SOLIMAN MD Sep 09, 2020 11:24
== END 2020-09-09 12:27 | disposition home health service (06) | DRG 871 ==
LOC: ER 08:35 → ICU 13:01 → 1 SOUTH 09-07 15:19
PROVIDERS: ADMIT Family Medicine; ATTEND Family Medicine
DX: A41.9 Sepsis, unspecified organism (principal); J96.01 Acute respiratory failure with hypoxia; J18.9 Pneumonia, unspecified organism; J96.02 Acute respiratory failure with hypercapnia; J98.11 Atelectasis; J20.9 Acute bronchitis, unspecified; F17.200 Nicotine dependence, unspecified, uncomplicated; I10 Essential (primary) hypertension; J43.9 Emphysema, unspecified; Z90.5 Acquired absence of kidney; Z90.710 Acquired absence of both cervix and uterus
CPT/HCPCS: 36415; 71045; 71275; 80048; 80053; 82803; 83605; 84484; 85025; 87040; 87070; 87205; 93005; 94618; 94640; 94760; 96365; 96368; J0456; J0696; J2920; J7050; Q9967; 99291-25